=== PATIENT | female | born 1995 | race African-American/Black ===

== ENCOUNTER 2017-04-06 09:39 | Emergency (ER) | payer OTHER ==
[~2017-04-06] VITALS: Ht 157.5 cm; Wt 81.7 kg
== END 2017-04-06 11:08 | disposition home or self-care (01) ==
LOC: ER 09:39
DX: R22.0 Localized swelling, mass and lump, head (principal); T50.995A Adverse effect of other drugs, medicaments and biological substances, initial encounter; Y92.89 Other specified places as the place of occurrence of the external cause